=== PATIENT | male | born 1990 | race Caucasian/White ===

== ENCOUNTER 2019-09-28 12:46 | Emergency (ER) | payer OTHER ==
[~2019-09-28] VITALS: Ht 182.9 cm; Wt 80.2 kg
[2019-09-28] MEDS ORDERED: LORazepam 2 MG/ML, 1ML ONE (12:52)
[2019-09-28] MEDS ORDERED: LORazepam 2 MG/ML, 1ML IVPush ONE (13:00)
[2019-09-28] MEDS ORDERED: SODIUM CHLORIDE 0.9% 1,000ML IVBOLUS ONE ×2 (13:00→13:30)
[2019-09-28 13:13] LABS: BASOPHILS # (AUTO) 0.05 x10^3/uL (0-0.1); BASOPHILS % (AUTO) 1 % (0-1); EOSINOPHILS # (AUTO) 0.06 x10^3/uL (0-0.4); EOSINOPHILS % (AUTO) 1 % (1-7); LYMPHOCYTES % (AUTO) 35 % (22-44); MD NO; MEAN CORPUSCULAR HEMOGLOBIN 31.5 pg (27.5-34.5); MEAN CORPUSCULAR HGB CONC 33.4 g/dL (33.2-36.2); MEAN CORPUSCULAR VOLUME 94.3 fL (81-97); MEAN PLATELET VOLUME 7.8 fL (7.4-10.4); MONOCYTES # (AUTO) 0.53 x10^3/uL (0.2-0.8); MONOCYTES % (AUTO) 7 % (2-9); NEUTROPHILS # (AUTO) 4.55 x10^3/uL (1.8-6.8); NEUTROPHILS % (AUTO) 57 % (42-75); PLATELET COUNT 396 x10^3/uL (130-400); RED BLOOD COUNT 5.86 x10^6/uL (4.38-5.82)
--- NOTE | 2019-09-28 13:15 | NUR ---
PT. WAS BROUGHT STRAIGHT BACK FROM TRIAGE. PT. ARRIVES TO THE ED WITH HIS EX- WHO STATES HE CALLED HER AND STATED HE WAS NOT FEELING WELL. PT. HAS A HX OF ME AND DRUG USE. PER HIS EX-SPOUSE HE WAS SEEN A FEW MONTHS AGO FOR CARDIAC RELATED SYMPTOMS. PT. IS A & O X 3 WITH A GCS OF 14. PUPILS ARE STEPHEN. PT.'S NECK IS MIDLINE WITHOUT JVD NOTED. CAP REFILL IS BRISK, LESS THAN 3 SECONDS. LUNGS ARE CTA. MM ARE PINK AND MOIST WITH PULSES +2 THROUGHOUT. PT. MOVES ALL EXTREMITIES WNL. PT.'S ABD. IS SOFT AND FLAT WITH BS + X 4 QUADS. PT. HAS THE CP MONITOR IN PLACE, IV ACCESS ESTABLISHED WITH AN NS BOLUS INFUSING. PT.'S 12 LEAD EKG WAS DONE. PT. WAS MEDICATED WITH ATIVAN AFTER HIS ADMITTING TO [facility] USE LAST NOC. PT.'S HEART RATE IS IMPROVING AFTER MEDICATION ADMINISTRATION AND IV FLUIDS.
[2019-09-28 13:21] LABS: CHLORIDE 104 mmol/L (98-107)
[2019-09-28 13:29] LABS: ANION GAP 10 mmol/L (5-15); CALCIUM 9.5 mg/dL (8.5-10.1); CREATINE KINASE, TOTAL 275 U/L (39-308); CREATININE 1.59 mg/dL (0.7-1.3)
--- NOTE | 2019-09-28 13:29 | NUR ---
PT.'S EX- REPORTS THAT THE PT. ALSO HAS A HX OF DVT. DISCUSSED WITH DR. LUNDY.
--- NOTE | 2019-09-28 13:35 | NUR ---
REPORT TO KB ELISE.
--- NOTE | 2019-09-28 13:42 | NUR ---
REPORT FROM DAYANA RN, PT RESTING IN [facility]. NEED URINE SAMPLE. PTS EX AT BEDSIDE.
--- NOTE | 2019-09-28 13:42 | NUR ---
PT. HAD A CLEAR SMALL PLASTIC BAG WITH TRANSLUCANT APPEARING LARGE CRYSTALS IN IT FALL OUT OF HIS POCKET. SECURITY WAS NOTIFIED AND THE SUBSTANCE WAS WASTED IN THE SHARPS CONTAINER. PT. ADMITS TO METH USEAGE.
--- NOTE | 2019-09-28 14:04 | NUR ---
PT TO CT
--- NOTE | 2019-09-28 14:19 | NUR ---
PT RETURNED FROM CT
[2019-09-28] MEDS ORDERED: OMNIPAQUE 350 MG/ML, 100ML BOTTLE ONE (14:24)
--- NOTE | 2019-09-28 14:30 | NUR ---
URINE SAMPLE WALKED TO LAB
[2019-09-28 14:44] LABS: MICROSCOPIC INDICATED
[2019-09-28 14:45] LABS: AMPHETAMINE SCREEN, URINE Positive (Negative); BARBITURATE SCREEN, URINE Negative (Negative); BENZODIAZEPINE SCREEN, URINE Negative (Negative); CANNABINOID SCREEN, URINE Negative (Negative); COCAINE SCREEN, URINE Negative (Negative); METHADONE SCREEN, URINE Negative (Negative); OPIATE SCREEN, URINE Negative (Negative)
[2019-09-28 14:51] VITALS: BP 133/84
--- NOTE | 2019-09-28 14:51 | NUR ---
AND RN DISCUSSED WITH PT AND EX ABOUT [facility] DRUG TREATMENT. PT DENIES DRUG USE TODAY WAS A PURPOSEFUL OVERDOSE AND DENIES SI/HI. PT AGREES TO GO TO [facility] AT THIS TIME. PER THROUGHPUT RN PT NEEDS TO BE THERE BY 1530 TODAY TO BE ACCEPTED, PER LABS AND RAD WNL, PT MEDICALLY CLEARED TO GO AT THIS TIME. PTS EX AGREES TO TAKE PT THERE.
--- NOTE | 2019-09-28 15:04 | NUR ---
PT OFFERED SHIRT FROM DONATION BIN, PT REFUSED AND LEFT SHIRT ON BED. PT RIPPED OFF PULSE OX SAYING "WHAT THE FUCK IS THIS PLACE". PT LEFT WITH EX TO [place], RN ESCORTED TO STEWARDING SUPERVISOR.
== END 2019-09-28 15:07 | disposition home or self-care (01) ==
LOC: ED 13:14
DX: G92 Toxic encephalopathy (principal); F15.10 Other stimulant abuse, uncomplicated; F29 Unspecified psychosis not due to a substance or known physiological condition; R42 Dizziness and giddiness; R00.0 Tachycardia, unspecified; R06.00 Dyspnea, unspecified
CPT/HCPCS: 36415; 71045; 71275; 74174; 80048; 80307; 81001; 82550; 85025; 87086; 93005; 96361; 96374; 99285; J2060; J7030; Q9967; 99284

== ENCOUNTER 2020-05-28 15:29 | Emergency (ER) | payer SELFPAY ==
[~2020-05-28] VITALS: Ht 175.3 cm; Wt 75.0 kg
--- NOTE | 2020-05-28 16:07 | NUR ---
ALL CLOTHES, BELONGINGS PLACED IN BAG AND SECURED. PT IN HOSPITAL GOWN WITH SITTER IN DIRECT VISUAL OF PT. Addendum: 05/29/20 at 1241 by CORDELL [employer] SECURITY FOOD TRAHeaven BERNAL
[2020-05-28 16:11] LABS: BASOPHILS % (AUTO) 1 % (0-1); EOSINOPHILS % (AUTO) 1 % (1-7); LYMPHOCYTES % (AUTO) 39 % (22-44); MEAN CORPUSCULAR HEMOGLOBIN 30.7 pg (27.5-34.5); MEAN CORPUSCULAR HGB CONC 34.3 g/dL (33.2-36.2); MEAN PLATELET VOLUME 7.4 fL (7.4-10.4); MONOCYTES % (AUTO) 7 % (2-9); NEUTROPHILS % (AUTO) 53 % (42-75); PLATELET COUNT 342 x10^3/uL (130-400); RED BLOOD COUNT 5.19 x10^6/uL (4.38-5.82); RED CELL DISTRIBUTION WIDTH 12.1 % (9.4-14.8)
[2020-05-28 16:12] LABS: MD NO
[2020-05-28 16:15] LABS: ALANINE AMINOTRANSFERASE 30 U/L (12-78); ALBUMIN 4.2 g/dL (3.4-5.0); ANION GAP 8 mmol/L (5-15); CALCIUM 9.1 mg/dL (8.5-10.1); CHLORIDE 109 mmol/L (98-107); CREATININE 1.23 mg/dL (0.7-1.3)
[2020-05-28 16:17] LABS: ALKALINE PHOSPHATASE 98 U/L (45-117); BILIRUBIN,TOTAL 0.5 mg/dL (0.2-1.0); TOTAL PROTEIN 7.7 g/dL (6.4-8.2)
[2020-05-28 16:18] LABS: SALICYLATE LEVEL < 1.7 mg/dL (2.8-20.0)
[2020-05-28] MEDS ORDERED: SODIUM CHLORIDE 0.9% 1,000ML IVBOLUS ONE (16:30)
[2020-05-28 16:38] LABS: TROPONIN I < 0.015 ng/mL (0.000-0.045)
[2020-05-28 16:47] LABS: AMPHETAMINE SCREEN, URINE Positive (Negative); BARBITURATE SCREEN, URINE Negative (Negative); BENZODIAZEPINE SCREEN, URINE Negative (Negative); CANNABINOID SCREEN, URINE Negative (Negative); COCAINE SCREEN, URINE Negative (Negative); METHADONE SCREEN, URINE Negative (Negative); OPIATE SCREEN, URINE Negative (Negative)
--- NOTE | 2020-05-28 16:50 | NUR ---
PT RESTING WITH EYES CLOSED. SP02 85%. 2L 02 PROVIDED VIA NC. SPO2 NOW 100%.
--- NOTE | 2020-05-28 16:54 | NUR ---
PT ANXIOUS BUT COOPERATIVE. NOW TACHY IN THE 130'S AND BREATHING SHALLOW AND FAST APPROX 28. PT COACHED TO SLOW BREATHING. PROVIDER UPDATED.
--- NOTE | 2020-05-28 17:24 | NUR ---
PT RESTING WITH EYES CLOSED. SITTER IN DIRECT VISUAL OF PT.
[2020-05-28] MEDS ORDERED: LORazepam 2 MG/ML, 1ML IVPush ONE (18:30)
[2020-05-28] MEDS ORDERED: LORazepam 2 MG/ML, 1ML ONE (18:45)
--- NOTE | 2020-05-28 19:03 | NUR ---
REPORT RECEIVED FROM CHADD Otero RN. PT RESTING ON [facility]. UPDATED ON POC. ALL MONITORING IN PLACE, CALL LIGHT WITHIN REACH. ALL SAFETY MEASURES IN PLACE.
--- NOTE | 2020-05-28 22:41 | NUR ---
TP RN: PT SELF PAY (NNAHMS ONLY) PACKET FAXED TO [facility]
--- NOTE | 2020-05-28 23:17 | NUR ---
REPORT GIVEN TO GOSIA RICHMOND.
--- NOTE | 2020-05-28 23:17 | NUR ---
REPORT FROM ANGELA ELISE. PT RESTING. EVEN RISE AND FALL OF CHEST OBSERVED. SITTER IN VIEW OF PT.
--- NOTE | 2020-05-29 01:08 | NUR ---
PT MOVED TO HOSPITAL BED. VSS. SITTER IN VIEW OF PT.
--- NOTE | 2020-05-29 02:37 | NUR ---
PT SLEEPING. EVEN RISE AND FALL OF CHEST OBSERVED. SITTER IN VIEW OF PT.
--- NOTE | 2020-05-29 04:09 | NUR ---
PT SLEEPING. EVEN RISE AND FALL OF CHEST OBSERVED. SITTER IN VIEW OF PT.
--- NOTE | 2020-05-29 05:18 | NUR ---
PT SLEEPING. EVEN RISE AND FALL OF CHEST OBSERVED. SITTER IN VIEW OF PT.
--- NOTE | 2020-05-29 06:11 | NUR ---
PT SLEEPING. EVEN RISE AND FALL OF CHEST OBSERVED. SITTER IN VIEW OF PT.
--- NOTE | 2020-05-29 07:00 | NUR ---
RECEIVED REPORT FROM YI. PT SLEEPING CALMLY ON HOSPITAL BED, NAD/VSS, NO NEEDS AT THIS TIME, CALL LIGHT WITHIN REACH.
--- NOTE | 2020-05-29 08:02 | NUR ---
PT CONTINUES TO SLEEP CALMLY ON HOSPITAL BED, RESPONDS APPROP TO STAFF WITH VERBAL STIMULI, NAD, BREAKFAST TRAY GIVEN & OTHER COMFORT MEASURES PROVIDED, PT REMAINS IN SAFE ENVIRONMENT, SITTER IN VIEW.
--- NOTE | 2020-05-29 09:04 | NUR ---
PT SLEEPING CALMLY ON HOSPITAL BED, NAD, NO NEEDS AT THIS TIME, CALL LIGHT WITHIN REACH.
--- NOTE | 2020-05-29 10:01 | NUR ---
PT CONTINUES SLEEPING ON HOSPITAL BED, NAD, NO NEEDS AT THIS TIME, PT REMAINS IN SAFE ENVIRONMENT, CALL LIGHT WITHIN REACH.
--- NOTE | 2020-05-29 11:03 | NUR ---
PT SLEEPING ON HOSPITAL BED, NAD, NO NEEDS AT THIS TIME, PT REMAINS IN SAFE ENVIRONMENT, PT REMAINS IN SAFE ENVIRONMENT, SITTER IN VIEW.
--- NOTE | 2020-05-29 12:00 | NUR ---
PT CONTINUES SLEEPING ON HOSPITAL BED, NAD, NO NEEDS AT THIS TIME, PT REMAINS IN SAFE ENVIRONMENT, PT REMAINS IN SAFE ENVIRONMENT, SITTER IN VIEW.
--- NOTE | 2020-05-29 13:04 | NUR ---
PT CONTINUES SLEEPING ON HOSPITAL BED, NAD, LUNCH TRAY GIVEN & OTHER COMFORT MEASURES PROVIDED, PT REMAINS IN SAFE ENVIRONMENT, SITTER IN VIEW.
--- NOTE | 2020-05-29 14:00 | NUR ---
PT SLEEPING ON HOSPITAL BED AFTER EATING LUNCH, NO OTHER NEEDS AT THIS TIME, NAD, PT REMAINS IN SAFE ENVIRONMENT, PT REMAINS IN SAFE ENVIRONMENT, SITTER IN VIEW.
--- NOTE | 2020-05-29 15:02 | NUR ---
PT CONTINUES SLEEPING ON HOSPITAL BED, NAD, COMFORT MEASURES PROVIDED, PT REMAINS IN SAFE ENVIRONMENT, SITTER IN VIEW.
--- NOTE | 2020-05-29 16:00 | NUR ---
PT SLEEPING ON HOSPITAL BED, RESPONDS TO STAFF QUESTIONS, NO NEEDS AT THIS TIME, NAD, PT REMAINS IN SAFE ENVIRONMENT, SITTER IN VIEW.
--- NOTE | 2020-05-29 17:22 | NUR ---
PT CONTINUES SLEEPING ON HOSPITAL BED, RESPONDS TO STAFF QUESTIONS, DINNER TRAY GIVEN- NO OTHER NEEDS AT THIS TIME, NAD, PT REMAINS IN SAFE ENVIRONMENT, SITTER IN VIEW.
--- NOTE | 2020-05-29 18:03 | NUR ---
PT CONTINUES SLEEPING ON HOSPITAL BED, RESPONDS TO STAFF QUESTIONS, REFUSED DINNER TRAY WHEN GIVEN- NO OTHER NEEDS AT THIS TIME, NAD, PT REMAINS IN SAFE ENVIRONMENT, SITTER IN VIEW.
--- NOTE | 2020-05-29 18:51 | NUR ---
REPORT GIVEN TO JACKLYN
--- NOTE | 2020-05-29 18:59 | NUR ---
report recieved from sergio calles. pt sleeping in bed, resp even/unlabored, in line of sight of yamila
--- NOTE | 2020-05-29 20:39 | NUR ---
pt given dinner tray per request, pt upset with being in hospital, but understanding of need to find placement. no other needs at this time. in line of sight of sitter
--- NOTE | 2020-05-29 23:53 | NUR ---
PT SLEEPING, RESP EVEN/UNLABORED, CALL LIGHT WITHIN REACH, IN LINE OF SIGHT OF SITTER
--- NOTE | 2020-05-30 01:18 | NUR ---
PT RESTING ON HOSPITAL BED NADN
--- NOTE | 2020-05-30 01:18 | NUR ---
SITTER IN SIGHT
--- NOTE | 2020-05-30 03:30 | NUR ---
pt provided snacks and water per request, no other needs at this time. will continue to monitor. sitter in line of sight
--- NOTE | 2020-05-30 04:18 | NUR ---
PT SLEEPING, RESP EVEN, IN LINE OF SIGHT OF SITTER
--- NOTE | 2020-05-30 05:47 | NUR ---
pt sleeping in bed, resp even and unlabored. in line of sight of sitter
--- NOTE | 2020-05-30 07:02 | NUR ---
REPORT GIVEN TO GOSIA PHILLIPS
--- NOTE | 2020-05-30 07:05 | NUR ---
Note miquel in EDM - 05/30/20 at 0731 by JONA REPORT RECEIVED FROM JACKLYN ELISE. PT SLEEPING ON HOSPITAL BED W/ CALL LIGHT IN REACH AND SIDE RAILS UPX2. 2 LAW ENFORCEMENT OFFICERS AT BEDSIDE. [address], CONDOM CATH IN PLACE. RESP EVEN AND UNLABORED,
--- NOTE | 2020-05-30 07:10 | NUR ---
REPORT RECEIVED FROM JACKLYN ELISE. PT SLEEPING ON HOSPITAL BED W/ SIDE RAILS UPX2, GARAGE DOORS DOWN AND SITTER OUTSIDE FOR SAFETY. RESP EVEN AND UNLABORED, JUNIOR.
--- NOTE | 2020-05-30 08:24 | NUR ---
DIET TRAY DELIVERED, PT WOULD LIKE TO SHOWER AFTER BREAKFAST, DENIES SI/HI SINCE LAST ASSESSMENT. SITTING UP ON HOSPITAL BED W/ GARAGE DOORS DOWN AND SITTER OUTSIDE FOR SAFETY. RESP EVEN AND UNLABORED, JUNIOR.
--- NOTE | 2020-05-30 08:38 | NUR ---
PT OFFERED SHOWERED, STATES NOT READY YET.
--- NOTE | 2020-05-30 09:23 | NUR ---
PT OFFERED SHOWER, REQUESTING FOR AFTER LUNCH. RESTING ON HOSPITAL BED W/ SIDE RAILS UPX2, GARAGE DOORS DOWNX2 AND SITTER OUTSIDE ROOM FOR SAFETY.
--- NOTE | 2020-05-30 10:21 | NUR ---
PT SLEEPING ON HOSPITAL BED W/ GARAGE DOORS DOWNX2 AND SITTER OUTSIDE ROOM FOR SAFETY. RESP EVEN AND UNLABORED, NADN.
--- NOTE | 2020-05-30 10:59 | NUR ---
RECEIVED REPORT FROM JACQUELINE ELISE. ASSUMING CARE AT THIS TIME. PT RESTING COMFORTABLY ON HOSPITAL BED. ROOM SECURE. PT IN DIRECT SIGHT OF SITTER.
--- NOTE | 2020-05-30 10:59 | NUR ---
REPORT GIVEN TO ARIS ELISE. PT RESTING ON HOSPITAL BED W/ GARAGE DOOR DOWNX2, SITTER OUTSIDE ROOM FOR SAFETY. RESP EVEN AND UNLABOREDJUNIOR. Addendum: 05/30/20 at 1105 by JONA REPORT GIVEN TO DANIELE ELISE. PT RESTING ON HOSPITAL BED W/ GARAGE DOOR DOWNX2, SITTER OUTSIDE ROOM FOR SAFETY. RESP EVEN AND UNLABOREDNADN.
--- NOTE | 2020-05-30 12:27 | NUR ---
LUNCH PROVIDED. PT APPRECIATIVE. ROOM SECURE. PT IN DIRECT SIGHT OF SITTER.
--- NOTE | 2020-05-30 13:40 | NUR ---
PT RESTING ON HOSPITAL BED. RESP EVEN AND UNLABORED. ROOM SECURE. PT IN DIRECT SIGHT OF SITTER.
--- NOTE | 2020-05-30 14:05 | NUR ---
JANEE, PSYCH SHELL WORKER AT BEDSIDE.
[2020-05-30] MEDS ORDERED: ARIPIPRAZOLE 10 MG TABLET PO ONE (14:30)
--- NOTE | 2020-05-30 14:37 | NUR ---
FUR DRY CLEANER HAND PER MAR.
[2020-05-30] MEDS ORDERED: ARIPIPRAZOLE 400 MG INJ NC IM ONE (15:00)
--- NOTE | 2020-05-30 15:01 | NUR ---
REQUESTED MED FROM PHARMACY. PT STATES HE FEELS FINE AFTER RAILROAD WATCHMAN. NO S/SX OF REACTION.
--- NOTE | 2020-05-30 15:07 | NUR ---
REQUESTED MED FROM PHARMACY.
[2020-05-30 15:22] VITALS: BP 110/70
--- NOTE | 2020-05-30 15:43 | NUR ---
PT TO F/U WITH OUT PATIENT PSYCH TO RECEIVE ABILIFY IM, PER JANEE NIELSEN.
== END 2020-05-30 16:05 | disposition home or self-care (01) ==
LOC: ED 18:29
DX: T43.592A Poisoning by other antipsychotics and neuroleptics, intentional self-harm, initial encounter (principal); F39 Unspecified mood [affective] disorder; F15.10 Other stimulant abuse, uncomplicated; R45.851 Suicidal ideations; Z59.0 Homelessness; R07.9 Chest pain, unspecified; F41.9 Anxiety disorder, unspecified; R00.0 Tachycardia, unspecified; Y92.89 Other specified places as the place of occurrence of the external cause
CPT/HCPCS: 36415; 80053; 80299; 80307; 80320; 80329; 84484; 85025; 93005; 96361; 96374; 99285; J2060; J7030; G0480

== ENCOUNTER 2020-07-08 20:25 | Emergency (ER) | payer SELFPAY ==
[~2020-07-08] VITALS: Ht 175.3 cm; Wt 81.6 kg
[2020-07-08] MEDS ORDERED: ACETAMINOPHEN 500 MG TABLET ONE (20:57)
[2020-07-08] MEDS ORDERED: DEXAMETHASONE 4 MG TABLET ONE (20:58)
[2020-07-08] MEDS ORDERED: ACETAMINOPHEN 500 MG TABLET PO ONE (21:00)
[2020-07-08] MEDS ORDERED: DEXAMETHASONE 4 MG TABLET PO ONE (21:00)
--- NOTE | 2020-07-08 21:10 | NUR ---
PT RESTING IN [facility], STATES PAIN IN CHEST DURING INSPIRATION SINCE May. PT ALSO HAS HEADACHE. PT MEDICATED PER EMAR, CXR PENDING, STREP AND COVID LABS SENT. PT ON ALL MONITORS, NO OTHER NEEDS AT THIS TIME
[2020-07-08 21:47] VITALS: BP 107/68
== END 2020-07-08 21:56 | disposition home or self-care (01) ==
LOC: ED 20:59
DX: J06.9 Acute upper respiratory infection, unspecified (principal); Z20.822 Contact with and (suspected) exposure to COVID-19; J02.9 Acute pharyngitis, unspecified; R07.89 Other chest pain; R00.0 Tachycardia, unspecified; F17.290 Nicotine dependence, other tobacco product, uncomplicated
CPT/HCPCS: 71045; 87081; 87880; 93005; 99285; 99406; U0003